=== PATIENT | male | born 1955 | race Caucasian/White ===

== ENCOUNTER → 2018-01-07 10:32 | Outpatient (CLI) | payer BC, SELFPAY ==
[2018-01-07 11:14] VITALS: BP 124/85; PULSE 99; RESP 15; TEMP 36.6; O2SAT 99; BMI 26.3
[2018-01-07 12:02] LABS: Erythrocyte Sedimentation Rate 56 mm/hr (0-20)
[2018-01-07 12:10] LABS: ALB/GLOB Ratio 0.7 RATIO (0.9-2.4); AST(SGOT) 25 U/L (15-37); Alanine Aminotransfer ALT/SGPT 28 U/L (16-61); Albumin, Serum 3.1 g/dL (3.2-5.0); Alkaline Phosphatase 61 U/L (45-117); Anion Gap 9 (5-15); BUN 20 mg/dL (7-18); BUN/Creat Ratio 20.9 RATIO (10-20); Calcium,Total 8.6 mg/dL (8.5-10.1); Chloride 103 mmol/L (98-107); Creatinine, Serum 0.96 mg/dL (0.70-1.30); EST Glomerular Filtration Rate 85 mL/min (>60); Est Glom Filt Rate - Afr Amer 103 mL/min (>60); Globulin 4.5 g/dL (2.2-4.2); Glucose 126 mg/dL (74-106); Potassium 4.3 mmol/L (3.5-5.1); Protein, Total 7.6 g/dL (6.4-8.2); Sodium Level 139 mmol/L (136-145)
[2018-01-07 12:20] LABS: Absolute Lymphocyte Count 1.15 X10^3/ul (0.83-4.51); Absolute Neutrophil Count 7.2 X10^3/uL (2.0-7.7); Basophil# 0.04 X10^3/uL; Basophil% 0.4 % (0-1); Eosinophil# 0.06 X10^3/uL; Eosinophils% 0.6 % (0-5); Hematocrit 38.4 % (40-54); Lymphocyte # 1.15 X10^3/ul (4.0); Lymphocyte % 12.4 % (19-41); Mean Corp Hgb Conc 31.3 g/gl (32-36); Mean Corpuscular Hgb 27.8 pg (27.0-32.0); Mean Corpuscular Volume 89.1 fL (80-94); Mean Platelet Vol. 8.6 fl (6.2-12.0); Monocyte# 0.78 X10^3/uL; Monocyte% 8.4 % (0-10); Neutrophil # 7.18 X10^3/uL (2.7-7.7); Neutrophil % 77.9 % (47-70); Platelet Count 461 K/mm3 (150-450); RBC Distribution Width CV 16.3 % (11.6-14.6); Red Blood Count 4.31 M/mm3 (4.6-6.2); White Blood Count 9.2 K/mm3 (4.4-11.0)
[2018-01-07 12:24] LABS: POSITIVE COUNT NO; POSITIVE DIFFERENTIAL NO; POSITIVE MORPHOLOGY NO
== END ==
PROVIDERS: Family Provider Family Medicine; PCP Family Medicine
DX: R78.81 Bacteremia (principal); B95.61 Methicillin susceptible Staphylococcus aureus infection as the cause of diseases classified elsewhere; M46.26 Osteomyelitis of vertebra, lumbar region; M46.46 Discitis, unspecified, lumbar region
CPT/HCPCS: 96365; 36592; 80053; 85025; 85652; 86140; J7050; A4216

== ENCOUNTER → 2018-01-08 10:42 | Outpatient (CLI) | payer BC, SELFPAY ==
[2018-01-08 11:00] VITALS: BP 130/81; PULSE 77; RESP 18; TEMP 36.4; O2SAT 98
== END ==
PROVIDERS: Family Provider Family Medicine; PCP Family Medicine
DX: R78.81 Bacteremia (principal); B95.61 Methicillin susceptible Staphylococcus aureus infection as the cause of diseases classified elsewhere; M46.26 Osteomyelitis of vertebra, lumbar region; M46.46 Discitis, unspecified, lumbar region
CPT/HCPCS: 96365; J7050; A4216

== ENCOUNTER → 2018-01-09 10:32 | Outpatient (CLI) | payer BC, SELFPAY ==
[2018-01-09 10:52] VITALS: BP 124/82; PULSE 86; RESP 16; TEMP 36.4; O2SAT 98; BMI 26.3
== END ==
PROVIDERS: Family Provider Family Medicine; PCP Family Medicine
DX: R78.81 Bacteremia (principal); B95.61 Methicillin susceptible Staphylococcus aureus infection as the cause of diseases classified elsewhere; M46.26 Osteomyelitis of vertebra, lumbar region; M46.46 Discitis, unspecified, lumbar region
CPT/HCPCS: 96365; J7050; A4216

== ENCOUNTER → 2018-01-10 10:33 | Outpatient (CLI) | payer BC, SELFPAY ==
[2018-01-10 10:57] VITALS: BP 140/95; PULSE 78; RESP 18; TEMP 36.5; BMI 26.7
== END ==
PROVIDERS: Family Provider Family Medicine; PCP Family Medicine
DX: R78.81 Bacteremia (principal); B95.61 Methicillin susceptible Staphylococcus aureus infection as the cause of diseases classified elsewhere; M46.26 Osteomyelitis of vertebra, lumbar region; M46.46 Discitis, unspecified, lumbar region
CPT/HCPCS: 96365; J7050; A4216

== ENCOUNTER 2018-01-11 10:29 | Outpatient (CLI) | payer BC, SELFPAY ==
[2018-01-11 10:58] VITALS: BP 138/90; PULSE 83; RESP 18; TEMP 36.9; O2SAT 96
== END 2018-01-11 11:47 | disposition home or self-care (01) ==
LOC: MEDOUTP 10:30 → MS3 10:34
PROVIDERS: Family Provider Family Medicine; PCP Family Medicine
DX: R78.81 Bacteremia (principal); B95.61 Methicillin susceptible Staphylococcus aureus infection as the cause of diseases classified elsewhere; M46.26 Osteomyelitis of vertebra, lumbar region; M46.46 Discitis, unspecified, lumbar region
CPT/HCPCS: 96365

== ENCOUNTER 2018-01-12 10:23 | Outpatient (CLI) | payer BC, SELFPAY ==
[2018-01-12] MEDS: 0.9% NaCl PICC Flush IV (10:42)
[2018-01-12 10:45] VITALS: BP 129/87; PULSE 80; RESP 18; TEMP 36.8; O2SAT 97
== END 2018-01-12 11:26 | disposition home or self-care (01) ==
LOC: MEDOUTP 10:23 → MS3 10:26
PROVIDERS: Family Provider Family Medicine; PCP Family Medicine
DX: R78.81 Bacteremia (principal); B95.61 Methicillin susceptible Staphylococcus aureus infection as the cause of diseases classified elsewhere; M46.26 Osteomyelitis of vertebra, lumbar region; M46.46 Discitis, unspecified, lumbar region
CPT/HCPCS: 96365; A4216

== ENCOUNTER → 2018-01-13 10:25 | Outpatient (CLI) | payer BC, SELFPAY ==
[2018-01-13 11:15] VITALS: BP 139/98; PULSE 78; RESP 18; TEMP 36.8; O2SAT 94; BMI 27.1
== END ==
PROVIDERS: Family Provider Family Medicine; PCP Family Medicine
DX: R78.81 Bacteremia (principal); B95.61 Methicillin susceptible Staphylococcus aureus infection as the cause of diseases classified elsewhere; M46.26 Osteomyelitis of vertebra, lumbar region; M46.46 Discitis, unspecified, lumbar region
CPT/HCPCS: 96365; J7050; A4216

== ENCOUNTER → 2018-01-14 10:24 | Outpatient (CLI) | payer BC, SELFPAY ==
[2018-01-14 10:39] VITALS: BP 132/87; PULSE 74; RESP 16; TEMP 36.8; BMI 26.9
[2018-01-14 12:03] LABS: Erythrocyte Sedimentation Rate 40 mm/hr (0-20)
[2018-01-14 12:12] LABS: Absolute Lymphocyte Count 1.55 X10^3/ul (0.83-4.51); Absolute Neutrophil Count 4.4 X10^3/uL (2.0-7.7); Basophil# 0.07 X10^3/uL; Eosinophil# 0.15 X10^3/uL; Eosinophils% 2.2 % (0-5); Hematocrit 38.3 % (40-54); Hemoglobin 11.8 g/dl (13.0-16.5); Lymphocyte # 1.55 X10^3/ul (4.0); Lymphocyte % 22.9 % (19-41); Mean Corp Hgb Conc 30.8 g/gl (32-36); Mean Corpuscular Hgb 27.8 pg (27.0-32.0); Mean Corpuscular Volume 90.3 fL (80-94); Monocyte# 0.65 X10^3/uL; Monocyte% 9.6 % (0-10); Neutrophil # 4.35 X10^3/uL (2.7-7.7); Neutrophil % 64.2 % (47-70); Platelet Count 371 K/mm3 (150-450); RBC Distribution Width CV 16.8 % (11.6-14.6); RBC Distribution Width SD 55.3 fl (35.1-43.9); Red Blood Count 4.24 M/mm3 (4.6-6.2); White Blood Count 6.8 K/mm3 (4.4-11.0)
[2018-01-14 12:13] LABS: POSITIVE COUNT NO; POSITIVE DIFFERENTIAL NO; POSITIVE MORPHOLOGY NO
[2018-01-14 12:16] LABS: ALB/GLOB Ratio 0.8 RATIO (0.9-2.4); AST(SGOT) 30 U/L (15-37); Alanine Aminotransfer ALT/SGPT 34 U/L (16-61); Albumin, Serum 3.1 g/dL (3.2-5.0); Alkaline Phosphatase 79 U/L (45-117); Anion Gap 9 (5-15); BUN 20 mg/dL (7-18); BUN/Creat Ratio 25.9 RATIO (10-20); CRP 9.66 mg/L (0.0-3.0); Calcium,Total 8.3 mg/dL (8.5-10.1); Chloride 108 mmol/L (98-107); Creatinine, Serum 0.77 mg/dL (0.70-1.30); EST Glomerular Filtration Rate 109 mL/min (>60); Est Glom Filt Rate - Afr Amer 132 mL/min (>60); Estimated Creatinine Clearance 95.38 ml/min; Globulin 4.1 g/dL (2.2-4.2); Glucose 120 mg/dL (74-106); Protein, Total 7.2 g/dL (6.4-8.2); Sodium Level 143 mmol/L (136-145)
== END ==
PROVIDERS: Family Provider Family Medicine; PCP Family Medicine
DX: R78.81 Bacteremia (principal); B95.61 Methicillin susceptible Staphylococcus aureus infection as the cause of diseases classified elsewhere; M46.26 Osteomyelitis of vertebra, lumbar region; M46.46 Discitis, unspecified, lumbar region
CPT/HCPCS: 96365; 36592; 80053; 85025; 85652; 86140; J7050; A4216

== ENCOUNTER → 2018-01-15 10:28 | Outpatient (CLI) | payer BC, SELFPAY ==
[2018-01-15 11:04] VITALS: BP 128/88; PULSE 76; RESP 16; TEMP 36.6; O2SAT 97; BMI 26.9
== END ==
PROVIDERS: Family Provider Family Medicine; PCP Family Medicine
DX: R78.81 Bacteremia (principal); B95.61 Methicillin susceptible Staphylococcus aureus infection as the cause of diseases classified elsewhere; M46.26 Osteomyelitis of vertebra, lumbar region; M46.46 Discitis, unspecified, lumbar region
CPT/HCPCS: 96365; J7050; A4216

== ENCOUNTER → 2018-01-16 10:23 | Outpatient (CLI) | payer BC, SELFPAY ==
[2018-01-16 10:38] VITALS: BP 143/99; PULSE 57; RESP 16; TEMP 36.4; O2SAT 98; BMI 27.1
== END ==
PROVIDERS: Family Provider Family Medicine; PCP Family Medicine
DX: R78.81 Bacteremia (principal); B95.61 Methicillin susceptible Staphylococcus aureus infection as the cause of diseases classified elsewhere; M46.26 Osteomyelitis of vertebra, lumbar region
CPT/HCPCS: 96365; J7050; A4216

== ENCOUNTER → 2018-01-17 10:33 | Outpatient (CLI) | payer BC, SELFPAY ==
[2018-01-17 10:40] VITALS: BP 143/86; PULSE 62; RESP 15; TEMP 36.2; O2SAT 100; BMI 27.1
== END ==
PROVIDERS: Family Provider Family Medicine; PCP Family Medicine
DX: R78.81 Bacteremia (principal); B95.61 Methicillin susceptible Staphylococcus aureus infection as the cause of diseases classified elsewhere; M46.26 Osteomyelitis of vertebra, lumbar region; M46.46 Discitis, unspecified, lumbar region
CPT/HCPCS: 96365; A4216

== ENCOUNTER 2018-01-18 10:31 | Outpatient (CLI) | payer BC, SELFPAY ==
[2018-01-18] MEDS: 0.9% NaCl PICC Flush IV ×2 (11:38→12:33)
[2018-01-18] MEDS: 0.9% NaCl IVPB Med Flush (250 mL) 15 ML IV (11:38)
[2018-01-18 11:44] VITALS: BP 151/86; PULSE 67; RESP 16; TEMP 36.9; O2SAT 96
== END 2018-01-18 12:37 | disposition home or self-care (01) ==
LOC: MEDOUTP 10:32 → MS3 11:30
PROVIDERS: Family Provider Family Medicine; PCP Family Medicine
DX: R78.81 Bacteremia (principal); B95.61 Methicillin susceptible Staphylococcus aureus infection as the cause of diseases classified elsewhere; M46.26 Osteomyelitis of vertebra, lumbar region; M46.46 Discitis, unspecified, lumbar region
CPT/HCPCS: 96365; J7050; A4216

== ENCOUNTER 2018-01-19 10:52 | Outpatient (CLI) | payer BC, SELFPAY ==
[2018-01-19 11:03] VITALS: BP 141/86; PULSE 66; RESP 16; TEMP 36.2; O2SAT 98
[2018-01-19] MEDS: 0.9% NaCl PICC Flush IV (11:10)
[2018-01-19] MEDS: 0.9% NaCl IVPB Med Flush (250 mL) 15 ML IV (11:10)
[2018-01-19 12:00] VITALS: BP 142/95; PULSE 67; RESP 16; TEMP 36.4; O2SAT 95
== END 2018-01-19 12:05 | disposition home or self-care (01) ==
LOC: MEDOUTP 10:52 → ICU 10:53
PROVIDERS: Family Provider Family Medicine; PCP Family Medicine
DX: R78.81 Bacteremia (principal); B95.61 Methicillin susceptible Staphylococcus aureus infection as the cause of diseases classified elsewhere; M46.26 Osteomyelitis of vertebra, lumbar region; M46.46 Discitis, unspecified, lumbar region
CPT/HCPCS: 96365; J7050; A4216

== ENCOUNTER → 2018-01-20 10:33 | Outpatient (CLI) | payer BC, SELFPAY ==
[2018-01-20 11:16] VITALS: BP 130/98; PULSE 100; RESP 16; TEMP 36.9; O2SAT 97
== END ==
PROVIDERS: Family Provider Family Medicine; PCP Family Medicine
DX: R78.81 Bacteremia (principal); B95.61 Methicillin susceptible Staphylococcus aureus infection as the cause of diseases classified elsewhere; M46.26 Osteomyelitis of vertebra, lumbar region; M46.46 Discitis, unspecified, lumbar region
CPT/HCPCS: 96365; J7050; A4216

== ENCOUNTER → 2018-01-21 10:28 | Outpatient (CLI) | payer BC, SELFPAY ==
[2018-01-21 11:12] VITALS: BP 150/92; PULSE 61; RESP 16; TEMP 36.9; O2SAT 98
[2018-01-21 11:15] LABS: Absolute Lymphocyte Count 1.43 X10^3/ul (0.83-4.51); Absolute Neutrophil Count 3.5 X10^3/uL (2.0-7.7); Basophil# 0.08 X10^3/uL; Basophil% 1.4 % (0-1); Eosinophil# 0.33 X10^3/uL; Eosinophils% 5.6 % (0-5); Hematocrit 38.7 % (40-54); Lymphocyte # 1.43 X10^3/ul (4.0); Lymphocyte % 24.2 % (19-41); Mean Corpuscular Hgb 28.2 pg (27.0-32.0); Mean Corpuscular Volume 91.1 fL (80-94); Monocyte# 0.62 X10^3/uL; Monocyte% 10.5 % (0-10); Neutrophil # 3.45 X10^3/uL (2.7-7.7); Neutrophil % 58.1 % (47-70); Platelet Count 302 K/mm3 (150-450); RBC Distribution Width CV 17.3 % (11.6-14.6); RBC Distribution Width SD 57.7 fl (35.1-43.9); Red Blood Count 4.25 M/mm3 (4.6-6.2); White Blood Count 5.9 K/mm3 (4.4-11.0)
[2018-01-21 11:16] LABS: POSITIVE COUNT NO; POSITIVE DIFFERENTIAL NO; POSITIVE MORPHOLOGY NO
[2018-01-21 11:20] LABS: Erythrocyte Sedimentation Rate 39 mm/hr (0-20)
[2018-01-21 11:31] LABS: ALB/GLOB Ratio 0.8 RATIO (0.9-2.4); AST(SGOT) 33 U/L (15-37); Alanine Aminotransfer ALT/SGPT 49 U/L (16-61); Albumin, Serum 3.2 g/dL (3.2-5.0); Alkaline Phosphatase 64 U/L (45-117); Anion Gap 8 (5-15); BUN 17 mg/dL (7-18); BUN/Creat Ratio 20.3 RATIO (10-20); CRP 4.83 mg/L (0.0-3.0); Calcium,Total 8.5 mg/dL (8.5-10.1); Chloride 108 mmol/L (98-107); Creatinine, Serum 0.84 mg/dL (0.70-1.30); EST Glomerular Filtration Rate 100 mL/min (>60); Est Glom Filt Rate - Afr Amer 120 mL/min (>60); Globulin 3.8 g/dL (2.2-4.2); Glucose 99 mg/dL (74-106); Sodium Level 142 mmol/L (136-145)
== END ==
PROVIDERS: Family Provider Family Medicine; PCP Family Medicine
DX: R78.81 Bacteremia (principal); B95.61 Methicillin susceptible Staphylococcus aureus infection as the cause of diseases classified elsewhere; M46.26 Osteomyelitis of vertebra, lumbar region; M46.46 Discitis, unspecified, lumbar region
CPT/HCPCS: 96365; 36592; 80053; 85025; 85652; 86140; J7050; A4216

== ENCOUNTER → 2018-01-22 10:37 | Outpatient (CLI) | payer BC, SELFPAY ==
[2018-01-22 11:12] VITALS: BP 137/86; PULSE 70; RESP 16; TEMP 37; O2SAT 97; BMI 27.1
== END ==
PROVIDERS: Family Provider Family Medicine; PCP Family Medicine
DX: R78.81 Bacteremia (principal); B95.61 Methicillin susceptible Staphylococcus aureus infection as the cause of diseases classified elsewhere; M46.26 Osteomyelitis of vertebra, lumbar region; M46.46 Discitis, unspecified, lumbar region
CPT/HCPCS: 96365; J7050; A4216

== ENCOUNTER → 2018-01-23 10:10 | Outpatient (CLI) | payer BC, SELFPAY ==
[2018-01-23 10:44] VITALS: BP 132/81; PULSE 63; RESP 16; TEMP 36.6; O2SAT 96; BMI 27.8
== END ==
PROVIDERS: Family Provider Family Medicine; PCP Family Medicine
DX: R78.81 Bacteremia (principal); B95.61 Methicillin susceptible Staphylococcus aureus infection as the cause of diseases classified elsewhere; M46.26 Osteomyelitis of vertebra, lumbar region; M46.46 Discitis, unspecified, lumbar region
CPT/HCPCS: 96365; J7050; A4216

== ENCOUNTER → 2018-01-24 10:09 | Outpatient (CLI) | payer BC, SELFPAY ==
[2018-01-24 10:21] VITALS: BP 163/96; PULSE 59; RESP 16; TEMP 36.4; O2SAT 98; BMI 27.8
== END ==
PROVIDERS: Family Provider Family Medicine; PCP Family Medicine
DX: R78.81 Bacteremia (principal); B95.61 Methicillin susceptible Staphylococcus aureus infection as the cause of diseases classified elsewhere; M46.26 Osteomyelitis of vertebra, lumbar region; M46.46 Discitis, unspecified, lumbar region
CPT/HCPCS: 96365; J7050; A4216

== ENCOUNTER 2018-01-25 10:13 | Outpatient (CLI) | payer BC, SELFPAY ==
[2018-01-25 11:00] VITALS: BP 139/95; PULSE 59; RESP 12; TEMP 36.8; O2SAT 97
[2018-01-25] MEDS: 0.9% NaCl PICC Flush IV (11:25)
== END 2018-01-25 11:28 | disposition home or self-care (01) ==
LOC: MEDOUTP 10:14 → PCU 10:15
PROVIDERS: Family Provider Family Medicine; PCP Family Medicine
DX: R78.81 Bacteremia (principal); B95.61 Methicillin susceptible Staphylococcus aureus infection as the cause of diseases classified elsewhere; M46.26 Osteomyelitis of vertebra, lumbar region; M46.46 Discitis, unspecified, lumbar region
CPT/HCPCS: 96365

== ENCOUNTER 2018-01-26 10:13 | Outpatient (CLI) | payer BC, SELFPAY ==
[2018-01-26 10:29] VITALS: BP 131/89; PULSE 64; RESP 12; TEMP 36.8; O2SAT 97
[2018-01-26] MEDS: 0.9% NaCl Peripheral Flush Adult/Peds IV ×2 (10:47→11:47)
== END 2018-01-26 11:47 | disposition home or self-care (01) ==
LOC: MEDOUTP 10:14 → PCU 10:16
PROVIDERS: Family Provider Family Medicine; PCP Family Medicine
DX: R78.81 Bacteremia (principal); B95.61 Methicillin susceptible Staphylococcus aureus infection as the cause of diseases classified elsewhere; M46.26 Osteomyelitis of vertebra, lumbar region; M46.46 Discitis, unspecified, lumbar region
CPT/HCPCS: 96365; A4216

== ENCOUNTER 2018-01-27 10:21 | Outpatient (CLI) | payer BC, SELFPAY ==
[2018-01-27 10:48] VITALS: BP 155/92; PULSE 62; RESP 18; TEMP 36.8; O2SAT 95
[2018-01-27] MEDS: 0.9% NaCl Peripheral Flush Adult/Peds IV (11:34)
== END 2018-01-27 11:35 | disposition home or self-care (01) ==
LOC: MEDOUTP 10:22 → PCU 10:23
PROVIDERS: Family Provider Family Medicine; PCP Family Medicine
DX: R78.81 Bacteremia (principal); B95.61 Methicillin susceptible Staphylococcus aureus infection as the cause of diseases classified elsewhere; M46.26 Osteomyelitis of vertebra, lumbar region; M46.46 Discitis, unspecified, lumbar region
CPT/HCPCS: 96365; A4216

== ENCOUNTER → 2018-01-28 10:10 | Outpatient (CLI) | payer BC, SELFPAY ==
[2018-01-28 10:55] VITALS: BP 140/88; PULSE 59; RESP 18; TEMP 36.3; O2SAT 95; BMI 27.8
[2018-01-28 11:07] LABS: Erythrocyte Sedimentation Rate 30 mm/hr (0-20)
[2018-01-28 11:16] LABS: Absolute Lymphocyte Count 1.02 X10^3/ul (0.83-4.51); Absolute Neutrophil Count 0.2 X10^3/uL (2.0-7.7); Basophil# 0.09 X10^3/uL; Basophil% 4.3 % (0-1); Eosinophil# 0.19 X10^3/uL; Hematocrit 39.7 % (40-54); Hemoglobin 12.7 g/dl (13.0-16.5); Lymphocyte # 1.02 X10^3/ul (4.0); Lymphocyte % 48.3 % (19-41); Mean Corpuscular Hgb 29.1 pg (27.0-32.0); Mean Corpuscular Volume 90.8 fL (80-94); Mean Platelet Vol. 9.1 fl (6.2-12.0); Monocyte# 0.57 X10^3/uL; Neutrophil # 0.23 X10^3/uL (2.7-7.7); Neutrophil % 10.9 % (47-70); Platelet Count 269 K/mm3 (150-450); RBC Distribution Width CV 17.1 % (11.6-14.6); Red Blood Count 4.37 M/mm3 (4.6-6.2); White Blood Count 2.1 K/mm3 (4.4-11.0)
[2018-01-28 11:23] LABS: Differential Indicated SCAN CRITERIA MET; POSITIVE COUNT NO; POSITIVE DIFFERENTIAL YES; POSITIVE MORPHOLOGY NO
[2018-01-28 11:55] LABS: ALB/GLOB Ratio 0.8 RATIO (0.9-2.4); AST(SGOT) 38 U/L (15-37); Alanine Aminotransfer ALT/SGPT 50 U/L (16-61); Albumin, Serum 3.1 g/dL (3.2-5.0); Alkaline Phosphatase 68 U/L (45-117); Anion Gap 10 (5-15); BUN 15 mg/dL (7-18); BUN/Creat Ratio 18.3 RATIO (10-20); CRP 4.92 mg/L (0.0-3.0); Calcium,Total 8.5 mg/dL (8.5-10.1); Chloride 108 mmol/L (98-107); Creatinine, Serum 0.82 mg/dL (0.70-1.30); EST Glomerular Filtration Rate 102 mL/min (>60); Est Glom Filt Rate - Afr Amer 124 mL/min (>60); Estimated Creatinine Clearance 89.57 ml/min; Globulin 3.8 g/dL (2.2-4.2); Glucose 93 mg/dL (74-106); Potassium 4.1 mmol/L (3.5-5.1); Protein, Total 6.9 g/dL (6.4-8.2); Sodium Level 144 mmol/L (136-145)
== END ==
PROVIDERS: Family Provider Family Medicine; PCP Family Medicine
DX: R78.81 Bacteremia (principal); B95.61 Methicillin susceptible Staphylococcus aureus infection as the cause of diseases classified elsewhere; M46.26 Osteomyelitis of vertebra, lumbar region; M46.46 Discitis, unspecified, lumbar region
CPT/HCPCS: 96365; 36592; 80053; 85025; 85652; 86140; J7050; A4216

== ENCOUNTER → 2018-01-29 10:11 | Outpatient (CLI) | payer BC, SELFPAY ==
[2018-01-29 10:30] VITALS: BP 138/87; PULSE 64; RESP 16; TEMP 36.2; O2SAT 96; BMI 27.8
== END ==
PROVIDERS: Family Provider Family Medicine; PCP Family Medicine
DX: R78.81 Bacteremia (principal); B95.61 Methicillin susceptible Staphylococcus aureus infection as the cause of diseases classified elsewhere; M46.26 Osteomyelitis of vertebra, lumbar region; M46.46 Discitis, unspecified, lumbar region
CPT/HCPCS: 96365; J7050; A4216

== ENCOUNTER → 2018-01-30 10:08 | Outpatient (CLI) | payer BC, SELFPAY ==
[2018-01-30 10:37] VITALS: BP 124/85; PULSE 58; RESP 16; TEMP 36.7; BMI 27.8
== END ==
PROVIDERS: Family Provider Family Medicine; PCP Family Medicine
DX: R78.81 Bacteremia (principal); B95.61 Methicillin susceptible Staphylococcus aureus infection as the cause of diseases classified elsewhere; M46.26 Osteomyelitis of vertebra, lumbar region; M46.46 Discitis, unspecified, lumbar region
CPT/HCPCS: 96365; J7050; A4216

== ENCOUNTER → 2018-01-31 10:09 | Outpatient (CLI) | payer BC, SELFPAY ==
[2018-01-31 10:25] VITALS: BP 128/84; PULSE 82; RESP 16; TEMP 36.8; O2SAT 94; BMI 27.8
== END ==
PROVIDERS: Family Provider Family Medicine; PCP Family Medicine
DX: R78.81 Bacteremia (principal); B95.61 Methicillin susceptible Staphylococcus aureus infection as the cause of diseases classified elsewhere; M46.26 Osteomyelitis of vertebra, lumbar region; M46.46 Discitis, unspecified, lumbar region
CPT/HCPCS: 96365; J7050; A4216

== ENCOUNTER 2018-02-01 10:12 | Outpatient (CLI) | payer BC, SELFPAY ==
[2018-02-01 10:22] VITALS: BP 152/92; PULSE 52; RESP 18; TEMP 36.7; O2SAT 98
== END 2018-02-01 11:10 | disposition home or self-care (01) ==
LOC: MEDOUTP 10:12 → MS3 10:13
PROVIDERS: Family Provider Family Medicine; PCP Family Medicine
DX: R78.81 Bacteremia (principal); B95.61 Methicillin susceptible Staphylococcus aureus infection as the cause of diseases classified elsewhere; M46.26 Osteomyelitis of vertebra, lumbar region; M46.46 Discitis, unspecified, lumbar region
CPT/HCPCS: 96365

== ENCOUNTER 2018-02-02 10:26 | Outpatient (CLI) | payer BC, SELFPAY ==
[2018-02-02 10:39] VITALS: BP 156/95; PULSE 52; RESP 18; TEMP 36.6; O2SAT 97; BMI 27.8
[2018-02-02] MEDS: 0.9% NaCl PICC Flush 10 ML IV ×2 (11:41→11:42)
== END 2018-02-02 11:31 | disposition home or self-care (01) ==
LOC: MEDOUTP 10:26 → MS2 10:27
PROVIDERS: Family Provider Family Medicine; PCP Family Medicine
DX: R78.81 Bacteremia (principal); B95.61 Methicillin susceptible Staphylococcus aureus infection as the cause of diseases classified elsewhere; M46.26 Osteomyelitis of vertebra, lumbar region; M46.46 Discitis, unspecified, lumbar region
CPT/HCPCS: 96365; J7040; A4216

== ENCOUNTER → 2018-02-03 10:12 | Outpatient (CLI) | payer BC, SELFPAY ==
[2018-02-03 10:49] VITALS: BP 139/98; PULSE 58; RESP 18; TEMP 36.2; O2SAT 95
== END ==
PROVIDERS: Family Provider Family Medicine; PCP Family Medicine
DX: R78.81 Bacteremia (principal); B95.61 Methicillin susceptible Staphylococcus aureus infection as the cause of diseases classified elsewhere; M46.26 Osteomyelitis of vertebra, lumbar region; M46.46 Discitis, unspecified, lumbar region
CPT/HCPCS: 96365; J7050; A4216

== ENCOUNTER → 2018-02-04 10:11 | Outpatient (CLI) | payer BC, SELFPAY ==
[2018-02-04 10:28] VITALS: BP 144/79; PULSE 62; RESP 16; TEMP 36.7; BMI 28.1
[2018-02-04 10:50] LABS: Erythrocyte Sedimentation Rate 29 mm/hr (0-20)
[2018-02-04 10:51] LABS: Absolute Lymphocyte Count 1.36 X10^3/ul (0.83-4.51); Absolute Neutrophil Count 1.3 X10^3/uL (2.0-7.7); Basophil# 0.09 X10^3/uL; Basophil% 2.4 % (0-1); Eosinophils% 8.2 % (0-5); Hematocrit 40.5 % (40-54); Hemoglobin 13.3 g/dl (13.0-16.5); Lymphocyte # 1.36 X10^3/ul (4.0); Mean Corp Hgb Conc 32.8 g/gl (32-36); Mean Corpuscular Hgb 29.7 pg (27.0-32.0); Mean Corpuscular Volume 90.4 fL (80-94); Mean Platelet Vol. 9.4 fl (6.2-12.0); Monocyte# 0.62 X10^3/uL; Monocyte% 16.8 % (0-10); Neutrophil # 1.28 X10^3/uL (2.7-7.7); Neutrophil % 34.8 % (47-70); Platelet Count 274 K/mm3 (150-450); RBC Distribution Width CV 16.9 % (11.6-14.6); RBC Distribution Width SD 54.6 fl (35.1-43.9); Red Blood Count 4.48 M/mm3 (4.6-6.2); White Blood Count 3.7 K/mm3 (4.4-11.0)
[2018-02-04 10:52] LABS: POSITIVE COUNT NO; POSITIVE DIFFERENTIAL NO; POSITIVE MORPHOLOGY NO
[2018-02-04 11:09] LABS: ALB/GLOB Ratio 0.8 RATIO (0.9-2.4); AST(SGOT) 43 U/L (15-37); Alanine Aminotransfer ALT/SGPT 71 U/L (16-61); Albumin, Serum 3.2 g/dL (3.2-5.0); Alkaline Phosphatase 79 U/L (45-117); Anion Gap 9 (5-15); BUN 18 mg/dL (7-18); BUN/Creat Ratio 19.8 RATIO (10-20); CRP 5.08 mg/L (0.0-3.0); Calcium,Total 8.4 mg/dL (8.5-10.1); Chloride 107 mmol/L (98-107); Creatinine, Serum 0.91 mg/dL (0.70-1.30); EST Glomerular Filtration Rate 90 mL/min (>60); Est Glom Filt Rate - Afr Amer 109 mL/min (>60); Estimated Creatinine Clearance 80.71 ml/min; Globulin 3.8 g/dL (2.2-4.2); Glucose 98 mg/dL (74-106); Potassium 4.1 mmol/L (3.5-5.1); Sodium Level 141 mmol/L (136-145)
== END ==
PROVIDERS: Family Provider Family Medicine; PCP Family Medicine
DX: R78.81 Bacteremia (principal); B95.61 Methicillin susceptible Staphylococcus aureus infection as the cause of diseases classified elsewhere; M46.26 Osteomyelitis of vertebra, lumbar region; M46.46 Discitis, unspecified, lumbar region
CPT/HCPCS: 96365; 36592; 80053; 85025; 85652; 86140; J7050

== ENCOUNTER → 2018-02-05 10:07 | Outpatient (CLI) | payer BC, SELFPAY ==
[2018-02-05 10:33] VITALS: BP 139/86; PULSE 53; RESP 16; TEMP 36.2; O2SAT 98; BMI 28.1
== END ==
PROVIDERS: Family Provider Family Medicine; PCP Family Medicine
DX: R78.81 Bacteremia (principal); B96.1 Klebsiella pneumoniae [K. pneumoniae] as the cause of diseases classified elsewhere; M46.26 Osteomyelitis of vertebra, lumbar region; M46.46 Discitis, unspecified, lumbar region
CPT/HCPCS: 96365; J7050; A4216

== ENCOUNTER → 2018-02-06 10:01 | Outpatient (CLI) | payer BC, SELFPAY ==
[2018-02-06 10:27] VITALS: BP 137/82; PULSE 61; RESP 16; TEMP 36.6; O2SAT 93; BMI 26.6
== END ==
PROVIDERS: Family Provider Family Medicine; PCP Family Medicine
DX: R78.81 Bacteremia (principal); B95.61 Methicillin susceptible Staphylococcus aureus infection as the cause of diseases classified elsewhere; M46.26 Osteomyelitis of vertebra, lumbar region; M46.46 Discitis, unspecified, lumbar region
CPT/HCPCS: 96365; J7050; A4216

== ENCOUNTER → 2018-02-07 10:07 | Outpatient (CLI) | payer BC, SELFPAY ==
[2018-02-07 10:17] VITALS: BP 130/82; PULSE 75; RESP 16; TEMP 36.6; O2SAT 92; BMI 28.1
== END ==
PROVIDERS: Family Provider Family Medicine; PCP Family Medicine
DX: R78.81 Bacteremia (principal); B95.61 Methicillin susceptible Staphylococcus aureus infection as the cause of diseases classified elsewhere; M46.26 Osteomyelitis of vertebra, lumbar region; M46.46 Discitis, unspecified, lumbar region
CPT/HCPCS: 96365; J7050; A4216

== ENCOUNTER 2018-02-08 10:15 | Outpatient (CLI) | payer BC, SELFPAY ==
[2018-02-08] MEDS: 0.9% NaCl PICC Flush IV (10:24)
[2018-02-08 10:25] VITALS: BP 147/94; PULSE 52; RESP 18; TEMP 36.8; O2SAT 97
== END 2018-02-08 11:00 | disposition home or self-care (01) ==
LOC: MEDOUTP 10:15 → MS2 10:16
PROVIDERS: Family Provider Family Medicine; PCP Family Medicine
DX: R78.81 Bacteremia (principal); B95.61 Methicillin susceptible Staphylococcus aureus infection as the cause of diseases classified elsewhere; M46.26 Osteomyelitis of vertebra, lumbar region; M46.46 Discitis, unspecified, lumbar region
CPT/HCPCS: 96365; A4216

== ENCOUNTER 2018-02-09 10:19 | Outpatient (CLI) | payer BC, SELFPAY ==
[2018-02-09 10:18] VITALS: BP 149/90; PULSE 66; RESP 16; TEMP 36.6; O2SAT 95; BMI 28.1
[2018-02-09] MEDS: 0.9% NaCl PICC Flush 10 ML IV ×2 (10:23→11:13)
== END 2018-02-09 11:15 | disposition home or self-care (01) ==
LOC: MS3OUT 10:20 → MS3 10:21
PROVIDERS: Family Provider Family Medicine; PCP Family Medicine
DX: R78.81 Bacteremia (principal); B95.61 Methicillin susceptible Staphylococcus aureus infection as the cause of diseases classified elsewhere; M46.26 Osteomyelitis of vertebra, lumbar region; M46.46 Discitis, unspecified, lumbar region
CPT/HCPCS: 96365; A4216

== ENCOUNTER → 2018-02-10 10:04 | Outpatient (CLI) | payer BC, SELFPAY ==
[2018-02-10 10:12] VITALS: BP 151/98; PULSE 59; RESP 16; TEMP 36.1; O2SAT 93; BMI 28.1
== END ==
PROVIDERS: Family Provider Family Medicine; PCP Family Medicine
DX: R78.81 Bacteremia (principal); B95.61 Methicillin susceptible Staphylococcus aureus infection as the cause of diseases classified elsewhere; M46.26 Osteomyelitis of vertebra, lumbar region; M46.46 Discitis, unspecified, lumbar region
CPT/HCPCS: 96365; J7050; A4216

== ENCOUNTER → 2018-02-11 10:08 | Outpatient (CLI) | payer BC, SELFPAY ==
[2018-02-11 10:23] VITALS: BP 158/97; TEMP 36.4
[2018-02-11 10:52] LABS: Erythrocyte Sedimentation Rate 21 mm/hr (0-20)
[2018-02-11 10:53] LABS: Absolute Lymphocyte Count 1.22 X10^3/ul (0.83-4.51); Absolute Neutrophil Count 1.7 X10^3/uL (2.0-7.7); Basophil# 0.06 X10^3/uL; Basophil% 1.6 % (0-1); Eosinophil# 0.17 X10^3/uL; Eosinophils% 4.4 % (0-5); Hematocrit 41.8 % (40-54); Hemoglobin 13.4 g/dl (13.0-16.5); Lymphocyte # 1.22 X10^3/ul (4.0); Lymphocyte % 31.9 % (19-41); Mean Corp Hgb Conc 32.1 g/gl (32-36); Mean Corpuscular Hgb 28.9 pg (27.0-32.0); Mean Corpuscular Volume 90.3 fL (80-94); Mean Platelet Vol. 9.9 fl (6.2-12.0); Monocyte# 0.71 X10^3/uL; Monocyte% 18.5 % (0-10); Neutrophil # 1.66 X10^3/uL (2.7-7.7); Neutrophil % 43.3 % (47-70); Platelet Count 231 K/mm3 (150-450); RBC Distribution Width CV 16.5 % (11.6-14.6); RBC Distribution Width SD 54.8 fl (35.1-43.9); Red Blood Count 4.63 M/mm3 (4.6-6.2); White Blood Count 3.8 K/mm3 (4.4-11.0)
[2018-02-11 10:54] LABS: POSITIVE COUNT NO; POSITIVE DIFFERENTIAL NO; POSITIVE MORPHOLOGY NO
[2018-02-11 11:31] LABS: ALB/GLOB Ratio 0.9 RATIO (0.9-2.4); AST(SGOT) 38 U/L (15-37); Alanine Aminotransfer ALT/SGPT 64 U/L (16-61); Albumin, Serum 3.3 g/dL (3.2-5.0); Alkaline Phosphatase 67 U/L (45-117); Anion Gap 6 (5-15); BUN 20 mg/dL (7-18); CRP 4.36 mg/L (0.0-3.0); Calcium,Total 8.3 mg/dL (8.5-10.1); Chloride 107 mmol/L (98-107); Creatinine, Serum 0.95 mg/dL (0.70-1.30); EST Glomerular Filtration Rate 86 mL/min (>60); Est Glom Filt Rate - Afr Amer 104 mL/min (>60); Globulin 3.8 g/dL (2.2-4.2); Glucose 84 mg/dL (74-106); Protein, Total 7.1 g/dL (6.4-8.2); Sodium Level 140 mmol/L (136-145)
== END ==
PROVIDERS: Family Provider Family Medicine; PCP Family Medicine
DX: R78.81 Bacteremia (principal); B95.61 Methicillin susceptible Staphylococcus aureus infection as the cause of diseases classified elsewhere; M46.26 Osteomyelitis of vertebra, lumbar region; M46.46 Discitis, unspecified, lumbar region
CPT/HCPCS: 96365; 36592; 80053; 85025; 85652; 86140; J7050; A4216

== ENCOUNTER → 2018-02-12 10:07 | Outpatient (CLI) | payer BC, SELFPAY ==
[2018-02-12 10:20] VITALS: BP 140/82; PULSE 58; RESP 16; TEMP 36.7; O2SAT 95; BMI 28.1
== END ==
PROVIDERS: Family Provider Family Medicine; PCP Family Medicine
DX: R78.81 Bacteremia (principal); B95.61 Methicillin susceptible Staphylococcus aureus infection as the cause of diseases classified elsewhere; M46.26 Osteomyelitis of vertebra, lumbar region; M46.46 Discitis, unspecified, lumbar region
CPT/HCPCS: 96365; J7050; A4216

== ENCOUNTER → 2018-02-13 10:06 | Outpatient (CLI) | payer BC, SELFPAY ==
[2018-02-13 10:33] VITALS: BP 140/93; PULSE 54; RESP 16; TEMP 36.5; O2SAT 96; BMI 28.1
== END ==
PROVIDERS: Family Provider Family Medicine; PCP Family Medicine
DX: R78.81 Bacteremia (principal); B95.61 Methicillin susceptible Staphylococcus aureus infection as the cause of diseases classified elsewhere; M46.26 Osteomyelitis of vertebra, lumbar region; M46.46 Discitis, unspecified, lumbar region
CPT/HCPCS: 96365; J7050; A4216

== ENCOUNTER → 2018-02-14 10:09 | Outpatient (CLI) | payer BC, SELFPAY ==
[2018-02-14 10:14] VITALS: BP 136/84; PULSE 58; RESP 15; TEMP 36.3; O2SAT 91; BMI 28.1
== END ==
PROVIDERS: Family Provider Family Medicine; PCP Family Medicine
DX: R78.81 Bacteremia (principal); B95.61 Methicillin susceptible Staphylococcus aureus infection as the cause of diseases classified elsewhere; M46.26 Osteomyelitis of vertebra, lumbar region; M46.46 Discitis, unspecified, lumbar region
CPT/HCPCS: 96365; J7050; A4216

== ENCOUNTER 2018-02-15 10:13 | Outpatient (CLI) | payer BC, SELFPAY ==
[2018-02-15] MEDS: 0.9% NaCl PICC Flush 10 ML IV (10:48)
[2018-02-15 10:49] VITALS: BP 141/82; PULSE 51; RESP 18; TEMP 36.3; O2SAT 94; BMI 28.1
[2018-02-15] MEDS: 0.9% NaCl IVPB Med Flush (250 mL) 15 ML IV (10:49)
== END 2018-02-15 11:30 | disposition home or self-care (01) ==
LOC: MS2OUT 10:14 → MS2 10:14
PROVIDERS: Family Provider Family Medicine; PCP Family Medicine
DX: R78.81 Bacteremia (principal); B95.61 Methicillin susceptible Staphylococcus aureus infection as the cause of diseases classified elsewhere; M46.26 Osteomyelitis of vertebra, lumbar region; M46.46 Discitis, unspecified, lumbar region
CPT/HCPCS: 96365; J7050; A4216

== ENCOUNTER 2018-02-16 10:50 | Outpatient (CLI) | payer BC, SELFPAY ==
[2018-02-16] MEDS: 0.9% NaCl IVPB Med Flush (250 mL) 15 ML IV (11:12)
[2018-02-16 11:13] VITALS: BP 143/83; PULSE 52; RESP 16; TEMP 36.6; O2SAT 97; BMI 28.1
[2018-02-16] MEDS: 0.9% NaCl PICC Flush 10 ML IV ×2 (11:13→11:52)
== END 2018-02-16 12:00 | disposition home or self-care (01) ==
LOC: MEDOUTP 10:51 → MS2 10:53
PROVIDERS: Family Provider Family Medicine; PCP Family Medicine
DX: R78.81 Bacteremia (principal); B95.61 Methicillin susceptible Staphylococcus aureus infection as the cause of diseases classified elsewhere; M46.26 Osteomyelitis of vertebra, lumbar region; M46.46 Discitis, unspecified, lumbar region
CPT/HCPCS: 96365; J7050; A4216

== ENCOUNTER → 2018-02-17 10:07 | Outpatient (CLI) | payer BC, SELFPAY ==
[2018-02-17 10:15] VITALS: BP 149/83; PULSE 55; RESP 16; TEMP 36.7; O2SAT 95; BMI 28.1
== END ==
PROVIDERS: Family Provider Family Medicine; PCP Family Medicine
DX: R78.81 Bacteremia (principal); B95.61 Methicillin susceptible Staphylococcus aureus infection as the cause of diseases classified elsewhere; M46.26 Osteomyelitis of vertebra, lumbar region; M46.46 Discitis, unspecified, lumbar region
CPT/HCPCS: 96365; J7050; A4216

== ENCOUNTER → 2018-02-18 10:08 | Outpatient (CLI) | payer BC, SELFPAY ==
[2018-02-18 10:33] VITALS: BP 153/88; PULSE 53; RESP 16; TEMP 36.7; BMI 28.1
[2018-02-18 10:47] LABS: Erythrocyte Sedimentation Rate 17 mm/hr (0-20)
[2018-02-18 10:51] LABS: Absolute Lymphocyte Count 1.15 X10^3/ul (0.83-4.51); Absolute Neutrophil Count 0.7 X10^3/uL (2.0-7.7); Basophil# 0.03 X10^3/uL; Basophil% 1.1 % (0-1); Eosinophil# 0.23 X10^3/uL; Eosinophils% 8.1 % (0-5); Hematocrit 41.2 % (40-54); Hemoglobin 13.3 g/dl (13.0-16.5); Lymphocyte # 1.15 X10^3/ul (4.0); Lymphocyte % 40.5 % (19-41); Mean Corp Hgb Conc 32.3 g/gl (32-36); Mean Corpuscular Hgb 28.9 pg (27.0-32.0); Mean Corpuscular Volume 89.6 fL (80-94); Mean Platelet Vol. 9.5 fl (6.2-12.0); Monocyte# 0.71 X10^3/uL; Neutrophil # 0.72 X10^3/uL (2.7-7.7); Neutrophil % 25.3 % (47-70); Platelet Count 230 K/mm3 (150-450); RBC Distribution Width SD 52.1 fl (35.1-43.9); White Blood Count 2.8 K/mm3 (4.4-11.0)
[2018-02-18 10:52] LABS: Differential Indicated SCAN CRITERIA MET; POSITIVE COUNT NO; POSITIVE DIFFERENTIAL YES; POSITIVE MORPHOLOGY NO
[2018-02-18 11:30] LABS: ALB/GLOB Ratio 0.9 RATIO (0.9-2.4); AST(SGOT) 29 U/L (15-37); Alanine Aminotransfer ALT/SGPT 48 U/L (16-61); Albumin, Serum 3.2 g/dL (3.2-5.0); Alkaline Phosphatase 64 U/L (45-117); Anion Gap 7 (5-15); BUN 13 mg/dL (7-18); BUN/Creat Ratio 15.5 RATIO (10-20); CRP 6.18 mg/L (0.0-3.0); Calcium,Total 8.4 mg/dL (8.5-10.1); Chloride 107 mmol/L (98-107); Creatinine, Serum 0.84 mg/dL (0.70-1.30); EST Glomerular Filtration Rate 99 mL/min (>60); Est Glom Filt Rate - Afr Amer 120 mL/min (>60); Estimated Creatinine Clearance 87.43 ml/min; Globulin 3.6 g/dL (2.2-4.2); Glucose 93 mg/dL (74-106); Protein, Total 6.8 g/dL (6.4-8.2); Sodium Level 141 mmol/L (136-145)
== END ==
PROVIDERS: Family Provider Family Medicine; PCP Family Medicine
DX: R78.81 Bacteremia (principal); B95.61 Methicillin susceptible Staphylococcus aureus infection as the cause of diseases classified elsewhere; M46.26 Osteomyelitis of vertebra, lumbar region; M46.46 Discitis, unspecified, lumbar region
CPT/HCPCS: 96365; 36592; 80053; 85025; 85652; 86140; J7050; A4216

== ENCOUNTER → 2018-02-19 10:10 | Outpatient (CLI) | payer BC, SELFPAY ==
[2018-02-19 10:17] VITALS: BP 141/92; PULSE 53; RESP 16; TEMP 36.6; BMI 28.1
== END ==
PROVIDERS: Family Provider Family Medicine; PCP Family Medicine
DX: R78.81 Bacteremia (principal); B95.61 Methicillin susceptible Staphylococcus aureus infection as the cause of diseases classified elsewhere; M46.26 Osteomyelitis of vertebra, lumbar region; M46.46 Discitis, unspecified, lumbar region
CPT/HCPCS: 96365; J7050; A4216

== ENCOUNTER → 2018-02-20 10:11 | Outpatient (CLI) | payer BC, SELFPAY ==
[2018-02-20 10:20] VITALS: BP 148/93; PULSE 51; RESP 14; TEMP 36.6; O2SAT 98; BMI 28.1
== END ==
PROVIDERS: Family Provider Family Medicine; PCP Family Medicine
DX: R78.81 Bacteremia (principal); B95.61 Methicillin susceptible Staphylococcus aureus infection as the cause of diseases classified elsewhere; M46.26 Osteomyelitis of vertebra, lumbar region; M46.46 Discitis, unspecified, lumbar region
CPT/HCPCS: 96365; J7050; A4216

== ENCOUNTER → 2018-02-21 10:09 | Outpatient (CLI) | payer BC, SELFPAY ==
[2018-02-21 10:39] VITALS: BP 130/90; PULSE 61; RESP 16; TEMP 36.8; O2SAT 96; BMI 28.1
== END ==
PROVIDERS: Family Provider Family Medicine; PCP Family Medicine
DX: R78.81 Bacteremia (principal); B95.61 Methicillin susceptible Staphylococcus aureus infection as the cause of diseases classified elsewhere; M46.26 Osteomyelitis of vertebra, lumbar region; M46.46 Discitis, unspecified, lumbar region
CPT/HCPCS: 96365; A4216

== ENCOUNTER 2018-02-22 10:01 | Outpatient (CLI) | payer BC, SELFPAY ==
[2018-02-22 10:08] VITALS: BP 143/94; PULSE 53; RESP 18; TEMP 36.9; O2SAT 96; BMI 28.1
[2018-02-22] MEDS: 0.9% NaCl Peripheral Flush Adult/Peds IV (10:29)
[2018-02-22 10:47] VITALS: BP 141/96; PULSE 61; RESP 16; O2SAT 96; BMI 28.1
== END 2018-02-22 10:47 | disposition home or self-care (01) ==
LOC: MEDOUTP 10:01 → ICU 10:02
PROVIDERS: Family Provider Family Medicine; PCP Family Medicine
DX: R78.81 Bacteremia (principal); B95.61 Methicillin susceptible Staphylococcus aureus infection as the cause of diseases classified elsewhere; M46.26 Osteomyelitis of vertebra, lumbar region; M46.46 Discitis, unspecified, lumbar region
CPT/HCPCS: 96365; A4216

== ENCOUNTER 2018-02-23 10:16 | Outpatient (CLI) | payer BC, SELFPAY ==
[2018-02-23] MEDS: 0.9% NaCl IVPB Med Flush (250 mL) 15 ML IV (10:54)
[2018-02-23] MEDS: 0.9% NaCl PICC Flush 10 ML IV (10:54)
[2018-02-23 10:55] VITALS: BP 140/91; PULSE 54; RESP 18; TEMP 36.2; O2SAT 96; BMI 28.1
== END 2018-02-23 11:40 | disposition home or self-care (01) ==
LOC: MEDOUTP 10:16 → MS2 10:17
PROVIDERS: Family Provider Family Medicine; PCP Family Medicine
DX: R78.81 Bacteremia (principal); B95.61 Methicillin susceptible Staphylococcus aureus infection as the cause of diseases classified elsewhere; M46.26 Osteomyelitis of vertebra, lumbar region; M46.46 Discitis, unspecified, lumbar region
CPT/HCPCS: 96365; J7050; A4216

== ENCOUNTER → 2018-02-24 10:11 | Outpatient (CLI) | payer BC, SELFPAY ==
[2018-02-24 10:45] VITALS: BP 137/100; PULSE 72; RESP 18; TEMP 36.8; O2SAT 94; BMI 28.1
== END ==
PROVIDERS: Family Provider Family Medicine; PCP Family Medicine
DX: R78.81 Bacteremia (principal); B95.61 Methicillin susceptible Staphylococcus aureus infection as the cause of diseases classified elsewhere; M46.26 Osteomyelitis of vertebra, lumbar region; M46.46 Discitis, unspecified, lumbar region
CPT/HCPCS: 96365; J7050; A4216

== ENCOUNTER → 2018-02-25 10:09 | Outpatient (CLI) | payer BC, SELFPAY ==
[2018-02-25 10:25] VITALS: BP 161/84; PULSE 50; RESP 16; TEMP 36.4; O2SAT 95; BMI 28.1
[2018-02-25 10:44] LABS: Absolute Lymphocyte Count 1.28 X10^3/ul (0.83-4.51); Absolute Neutrophil Count 2.7 X10^3/uL (2.0-7.7); Basophil# 0.06 X10^3/uL; Basophil% 1.2 % (0-1); Eosinophil# 0.23 X10^3/uL; Eosinophils% 4.5 % (0-5); Hematocrit 41.7 % (40-54); Hemoglobin 13.8 g/dl (13.0-16.5); Lymphocyte # 1.28 X10^3/ul (4.0); Lymphocyte % 25.2 % (19-41); Mean Corp Hgb Conc 33.1 g/gl (32-36); Mean Corpuscular Hgb 29.6 pg (27.0-32.0); Mean Corpuscular Volume 89.3 fL (80-94); Mean Platelet Vol. 9.5 fl (6.2-12.0); Monocyte% 15.7 % (0-10); Neutrophil # 2.69 X10^3/uL (2.7-7.7); POSITIVE COUNT NO; POSITIVE DIFFERENTIAL NO; POSITIVE MORPHOLOGY NO; Platelet Count 257 K/mm3 (150-450); RBC Distribution Width CV 15.3 % (11.6-14.6); RBC Distribution Width SD 49.7 fl (35.1-43.9); Red Blood Count 4.67 M/mm3 (4.6-6.2); White Blood Count 5.1 K/mm3 (4.4-11.0)
[2018-02-25 10:46] LABS: Erythrocyte Sedimentation Rate 13 mm/hr (0-20)
[2018-02-25 11:05] LABS: ALB/GLOB Ratio 0.9 RATIO (0.9-2.4); AST(SGOT) 32 U/L (15-37); Alanine Aminotransfer ALT/SGPT 50 U/L (16-61); Albumin, Serum 3.3 g/dL (3.2-5.0); Alkaline Phosphatase 70 U/L (45-117); Anion Gap 7 (5-15); BUN 17 mg/dL (7-18); BUN/Creat Ratio 19.9 RATIO (10-20); CRP < 2.90 mg/L (0.0-3.0); Calcium,Total 8.2 mg/dL (8.5-10.1); Chloride 108 mmol/L (98-107); Creatinine, Serum 0.85 mg/dL (0.70-1.30); EST Glomerular Filtration Rate 97 mL/min (>60); Est Glom Filt Rate - Afr Amer 118 mL/min (>60); Estimated Creatinine Clearance 86.41 ml/min; Globulin 3.5 g/dL (2.2-4.2); Glucose 87 mg/dL (74-106); Potassium 4.2 mmol/L (3.5-5.1); Protein, Total 6.8 g/dL (6.4-8.2); Sodium Level 141 mmol/L (136-145)
== END ==
PROVIDERS: Family Provider Family Medicine; PCP Family Medicine
DX: R78.81 Bacteremia (principal); B95.61 Methicillin susceptible Staphylococcus aureus infection as the cause of diseases classified elsewhere; M46.26 Osteomyelitis of vertebra, lumbar region; M46.46 Discitis, unspecified, lumbar region
CPT/HCPCS: 96365; 36592; 80053; 85025; 85652; 86140; J7050; A4216

== ENCOUNTER → 2018-02-26 10:02 | Outpatient (CLI) | payer BC, OTHER, SELFPAY ==
[2018-02-26 10:24] VITALS: BP 152/88; PULSE 57; RESP 16; TEMP 36.8; O2SAT 98; BMI 28.1
== END ==
PROVIDERS: Family Provider Family Medicine; PCP Family Medicine
DX: R78.81 Bacteremia (principal); B95.61 Methicillin susceptible Staphylococcus aureus infection as the cause of diseases classified elsewhere; M46.26 Osteomyelitis of vertebra, lumbar region; M46.46 Discitis, unspecified, lumbar region
CPT/HCPCS: 96365; J7050; A4216

== ENCOUNTER → 2018-02-27 10:03 | Outpatient (CLI) | payer BC, OTHER, SELFPAY ==
[2018-02-27 10:21] VITALS: BP 145/87; PULSE 64; RESP 16; TEMP 36.7
== END ==
PROVIDERS: Family Provider Family Medicine; PCP Family Medicine
DX: R78.81 Bacteremia (principal); B95.61 Methicillin susceptible Staphylococcus aureus infection as the cause of diseases classified elsewhere; M46.26 Osteomyelitis of vertebra, lumbar region; M46.46 Discitis, unspecified, lumbar region
CPT/HCPCS: 96365; J7050; A4216

== ENCOUNTER → 2018-02-28 10:02 | Outpatient (CLI) | payer BC, OTHER, SELFPAY ==
[2018-02-28 10:16] VITALS: BP 153/86; PULSE 53; RESP 16; TEMP 36.6; O2SAT 95; BMI 28.1
== END ==
PROVIDERS: Family Provider Family Medicine; PCP Family Medicine
DX: R78.81 Bacteremia (principal); B95.61 Methicillin susceptible Staphylococcus aureus infection as the cause of diseases classified elsewhere; M46.26 Osteomyelitis of vertebra, lumbar region; M46.46 Discitis, unspecified, lumbar region
CPT/HCPCS: 96365; J7050; A4216

== ENCOUNTER 2018-03-01 10:04 | Outpatient (CLI) | payer BC, OTHER, SELFPAY ==
[2018-03-01 10:17] VITALS: BP 142/88; PULSE 56; RESP 18; TEMP 36.4; O2SAT 96
[2018-03-01] MEDS: 0.9% NaCl Peripheral Flush Adult/Peds IV (10:29)
== END 2018-03-01 10:50 | disposition home or self-care (01) ==
LOC: MEDOUTP 10:05 → PCU 10:05
PROVIDERS: Family Provider Family Medicine; PCP Family Medicine
DX: R78.81 Bacteremia (principal); B95.61 Methicillin susceptible Staphylococcus aureus infection as the cause of diseases classified elsewhere; M46.26 Osteomyelitis of vertebra, lumbar region; M46.46 Discitis, unspecified, lumbar region
CPT/HCPCS: 96365; A4216

== ENCOUNTER 2018-03-02 10:06 | Outpatient (CLI) | payer BC, OTHER, SELFPAY ==
[2018-03-02] MEDS: 0.9% NaCl IVPB Med Flush (250 mL) 15 ML IV (10:15)
[2018-03-02 10:23] VITALS: BP 134/91; PULSE 70; RESP 16; TEMP 36.7; O2SAT 95
[2018-03-02] MEDS: 0.9% NaCl PICC Flush IV ×2 (11:19→11:21)
== END 2018-03-02 11:22 | disposition home or self-care (01) ==
LOC: MS3OUT 10:07 → MS3 10:08
PROVIDERS: Family Provider Family Medicine; PCP Family Medicine
DX: R78.81 Bacteremia (principal); B95.61 Methicillin susceptible Staphylococcus aureus infection as the cause of diseases classified elsewhere; M46.26 Osteomyelitis of vertebra, lumbar region; M46.46 Discitis, unspecified, lumbar region
CPT/HCPCS: 96365; J7050; A4216

== ENCOUNTER → 2018-03-03 10:05 | Outpatient (CLI) | payer BC, OTHER, SELFPAY ==
[2018-03-03 10:14] VITALS: BP 151/92; PULSE 63; RESP 18; TEMP 36.9; O2SAT 93; BMI 28.1
[2018-03-03 10:40] LABS: Erythrocyte Sedimentation Rate 12 mm/hr (0-20)
[2018-03-03 10:41] LABS: Absolute Lymphocyte Count 1.13 X10^3/ul (0.83-4.51); Absolute Neutrophil Count 1.7 X10^3/uL (2.0-7.7); Basophil# 0.04 X10^3/uL; Basophil% 1.1 % (0-1); Eosinophil# 0.15 X10^3/uL; Eosinophils% 4.1 % (0-5); Hematocrit 42.2 % (40-54); Hemoglobin 14.1 g/dl (13.0-16.5); Lymphocyte # 1.13 X10^3/ul (4.0); Lymphocyte % 30.8 % (19-41); Mean Corp Hgb Conc 33.4 g/gl (32-36); Mean Corpuscular Hgb 29.8 pg (27.0-32.0); Mean Corpuscular Volume 89.2 fL (80-94); Mean Platelet Vol. 9.6 fl (6.2-12.0); Monocyte# 0.66 X10^3/uL; Neutrophil # 1.68 X10^3/uL (2.7-7.7); Neutrophil % 45.7 % (47-70); POSITIVE COUNT NO; POSITIVE DIFFERENTIAL NO; POSITIVE MORPHOLOGY NO; Platelet Count 233 K/mm3 (150-450); RBC Distribution Width SD 48.5 fl (35.1-43.9); Red Blood Count 4.73 M/mm3 (4.6-6.2); White Blood Count 3.7 K/mm3 (4.4-11.0)
[2018-03-03 11:03] LABS: ALB/GLOB Ratio 0.9 RATIO (0.9-2.4); AST(SGOT) 35 U/L (15-37); Alanine Aminotransfer ALT/SGPT 51 U/L (16-61); Albumin, Serum 3.2 g/dL (3.2-5.0); Alkaline Phosphatase 75 U/L (45-117); Anion Gap 8 (5-15); BUN 18 mg/dL (7-18); BUN/Creat Ratio 20.7 RATIO (10-20); CRP < 2.90 mg/L (0.0-3.0); Calcium,Total 8.7 mg/dL (8.5-10.1); Chloride 108 mmol/L (98-107); Creatinine, Serum 0.87 mg/dL (0.70-1.30); EST Glomerular Filtration Rate 95 mL/min (>60); Est Glom Filt Rate - Afr Amer 115 mL/min (>60); Estimated Creatinine Clearance 84.42 ml/min; Globulin 3.6 g/dL (2.2-4.2); Glucose 101 mg/dL (74-106); Potassium 4.2 mmol/L (3.5-5.1); Protein, Total 6.8 g/dL (6.4-8.2); Sodium Level 141 mmol/L (136-145)
== END ==
PROVIDERS: Family Provider Family Medicine; PCP Family Medicine
DX: R78.81 Bacteremia (principal); B95.61 Methicillin susceptible Staphylococcus aureus infection as the cause of diseases classified elsewhere; M46.46 Discitis, unspecified, lumbar region; M46.26 Osteomyelitis of vertebra, lumbar region
CPT/HCPCS: 96365; 80053; 85025; 85652; 86140; J7050; A4216